=== PATIENT | male | born 1965 | race Native Hawaiian/Other Pacific Islander ===

== ENCOUNTER 2021-07-27 10:59 | Outpatient (CLI) | payer OTHER ==
[2021-07-27 11:17] LABS: PLATELET COUNT 197 K/uL (142-355)
[2021-07-27 11:31] LABS: POTASSIUM 4.2 mmol/L (3.6-5.2)
== END 2021-07-27 21:08 | disposition home or self-care (01) ==
LOC: LABW 10:59
PROVIDERS: ATTEND Nurse Practitioner Family
DX: R50.9 Fever, unspecified (principal)
CPT/HCPCS: 36415; 80053; 83605; 85027; 85652; 86140

== ENCOUNTER 2021-12-01 15:51 | Outpatient (CLI) | payer OTHER ==
[~2021-12-01] VITALS: Ht 177.8 cm; Wt 120.2 kg
== END 2021-12-01 19:23 | disposition home or self-care (01) ==
LOC: INF 15:51
PROVIDERS: ATTEND Nurse Practitioner Family
DX: U07.1 COVID-19 (principal); Z23 Encounter for immunization
CPT/HCPCS: 96365; Q0247